=== PATIENT | female | born 1935 | race Caucasian/White ===

== ENCOUNTER 2023-03-14 14:32 | Inpatient (IN) | payer MEDICARE, OTHER ==
[~2023-03-14] VITALS: Ht 167.6 cm; Wt 50.8 kg
--- NOTE | 2023-03-14 15:05 | NUR ---
BUS ATTENDANT GEMINI [phone]
--- NOTE | 2023-03-14 15:24 | NUR ---
MOVE SHEET SUBMITTED.
--- NOTE | 2023-03-14 15:25 | NUR ---
INSERTED ANGO CATHETER G 18 ON LA AC BLOOD DROW AND SENT TO LAB
--- NOTE | 2023-03-14 15:30 | NUR ---
UA SENT TO LAB
[2023-03-14 16:00] LABS: BASOPHILS % (AUTO) 0.8 % (0.0-2.0); EOSINOPHILS % (AUTO) 2.4 % (0.0-6.0); HEMATOCRIT 36 % (33-45); HEMOGLOBIN 11.8 g/dL (11.5-14.8); LYMPHOCYTES # (AUTO) 1.1 K/uL (0.8-4.8); LYMPHOCYTES % (AUTO) 23.4 % (20.0-44.0); MEAN CORPUSCULAR HGB CONC 33 g/dl (31.0-36.0); MEAN CORPUSCULAR VOLUME 92 fL (82-100); MONOCYTES # (AUTO) 0.5 K/uL (0.1-1.30); MONOCYTES % (AUTO) 9.6 % (2.0-12.0); NEUTROPHILS # (AUTO) 3.1 K/uL (1.8-8.9); NEUTROPHILS % (AUTO) 63.8 % (43.0-81.0); PLATELET COUNT (AUTO) 261 K/uL (150-450); RED BLOOD CELL COUNT(AUTO) 3.94 MIL/uL (4.0-5.2); WHITE BLOOD COUNT (AUTO) 4.8 K/uL (4.3-11.0)
[2023-03-14 16:01] LABS: BILIRUBIN,URINE NEGATIVE (NEGATIVE); COLOR,URINE YELLOW (YELLOW); LEUKOCYTE ESTERASE ,URINE NEGATIVE (NEGATIVE); NITRITE, URINE NEGATIVE (NEGATIVE); PH,URINE 7.5 (5.0-8.0); PROTEIN,URINE NEGATIVE (NEGATIVE); UGLUCOSE 3+ mg/dL (NEGATIVE); UROBILINOGEN,URINE 0.2 EU/dL (0.2)
[2023-03-14 16:30] LABS: BACTERIA,URINE None seen /HPF (None Seen); RBC,URINE 0-2 /HPF (0-2); SQUAMOUS EPITHELIAL CELL,UR 0-2 /HPF (None Seen); WBC,URINE NONE SEEN /HPF (0-3)
[2023-03-14 16:31] LABS: CALCIUM, SERUM 9.1 mg/dL (8.5-10.1); CARBON DIOXIDE 28 mmol/L (21-32); CHLORIDE 101 mmol/L (98-107); CREATININE 0.8 mg/dL (0.6-1.3); GLUCOSE 110 mg/dL (74-106); POTASSIUM 3.5 mmol/L (3.5-5.1); SODIUM SERUM 140 mmol/L (136-145); UREA NITROGEN, BLOOD 27 mg/dL (7-18)
[2023-03-14 16:38] LABS: ALANINE AMINOTRANSFERASE 41 U/L (12-78); ALKALINE PHOSPHATASE 70 U/L (46-116); ASPARTATE AMINOTRANSFERASE 26 U/L (15-37); BILIRUBIN,DIRECT 0.2 mg/dL (0.0-0.2); BILIRUBIN,TOTAL 0.8 mg/dL (0.2-1.0); TOTAL PROTEIN, SERUM 7.2 g/dL (6.4-8.2)
[2023-03-14 16:40] LABS: ALCOHOL, BLOOD < 3 mg/dL (0-0)
--- NOTE | 2023-03-14 16:40 | NUR ---
c xray done at bed side
--- NOTE | 2023-03-14 16:45 | NUR ---
to ct scan of head via shan khan vs
--- NOTE | 2023-03-14 18:04 | NUR ---
[facility] CALLED, TEACHER DRAMA PAGED.
--- NOTE | 2023-03-14 18:49 | NUR ---
COVID SWAB SENT TO LAB
[2023-03-14] MEDS ORDERED: DORZ10DR11 LEFTEYE (19:00)
[2023-03-14] MEDS ORDERED: APIX2.5T PO (19:00)
[2023-03-14] MEDS ORDERED: FURO20TA4 PO (19:00)
[2023-03-14] MEDS ORDERED: VORT20TA PO (19:00)
[2023-03-14] MEDS ORDERED: LATA2.5D15 LEFTEYE (19:00)
[2023-03-14] MEDS ORDERED: CHOL100043 PO (19:00)
[2023-03-14] MEDS ORDERED: DORZ10DR11 RIGHTEYE (19:00)
[2023-03-14] MEDS ORDERED: METF-440 PO (19:00)
[2023-03-14] MEDS ORDERED: VERQUVO PO (19:00)
[2023-03-14] MEDS ORDERED: KETO5DRO39 LEFTEYE (19:00)
[2023-03-14] MEDS ORDERED: PRED5DRO17 RIGHTEYE (19:00)
[2023-03-14] MEDS ORDERED: SACU1TAB PO (19:00)
[2023-03-14] MEDS ORDERED: ATOR10TA PO (19:00)
--- NOTE | 2023-03-14 19:11 | NUR ---
[facility] CALLED, DEBUBBLIZER PAGED.
--- NOTE | 2023-03-14 19:21 | NUR ---
HAND OFF TO WILLIAM SHERMAN
--- NOTE | 2023-03-14 20:13 | NUR ---
REPORT GIVEN TO SHAHID SHERMAN
[2023-03-14 20:30] VITALS: BP 119/76
--- NOTE | 2023-03-14 20:30 | NUR ---
PT TRANSPORTED TO [facility]
--- NOTE | 2023-03-14 20:31 | NUR ---
RADIO TIME BUYER ADMITTING NOTES PT ARRIVED TO UNIT @ 2029 VIA GURNEY ASSISTED BY ER STAFF. A/O X4, NORTHERN IRISH-SPEAKING, UNDERSTANDS SOME NEPALI, ABLE TO MAKE NEEDS KNOWN. VITAL SIGNS: 148/84 BP, 70 HR, 20 RR, 98 F, 97% O2. WEIGHT: 112.4 LB. PLACED ON MACHINE EGG WASHER READING V-PACING, 72 HR, PACEMAKER SPIKES. ON RA WITH NO S/S OF SOB OR DISTRESS. DENIES PAIN AT THIS TIME. IV ACCESS RAC #20G SL, PATENT, INTACT, FLUSHING WELL. BREATH SOUNDS WNL. CIRCULATION WNL. BOWEL SOUNDS ACTIVE. NATURAL RESOURCES SPECIALIST ANTHONY SALDAÑA AT BEDSIDE, MEDIA DIRECTOR UTILIZED, ASKED QUESTIONS TO PT AND PERFORMED ASSESSMENTS. ASKED HOSPITALIST FOR NEW ORDERS, JUST THAT PT WILL BE DNR/DNI PER PT REQUEST. NIHSS STROKE SCALE PERFORMED: 0. NURSING SWALLOW SCREEN: PASSED. WILL ADMINISTER PO MEDS PER PROTOCOL. SKIN ASSESSMENT PERFORMED, NON-BLANCHABLE REDNESS NOTED ON SACRUM, PLACED OPTIFOAM FOR OFFLOADING. BELONGINGS CHECKED AND DOCUMENTED. PT MADE COMFORTABLE. ORIENTED TO UNIT AND HOW TO USE CALL LIGHT. SAFETY MEASURES PUT IN PLACE: BED LOCKED AND IN LOW POSITION, SIDE RAILS UP X3, BED ALARM ON, SIDE RAILS UP X3, CALL LIGHT AND TRAY TABLE WITHIN REACH. WILL CONTINUE TO MONITOR AND ASSIST.
[2023-03-14] MEDS ORDERED: MAGNESIUM HYDROXIDE 30 ML UDC PO PRN (21:30)
[2023-03-14] MEDS ORDERED: Z GUARD REMEDY 4 OZ OINT TP PRN (21:30)
[2023-03-14] MEDS ORDERED: ACETAMINOPHEN 325 MG TABLET PO PRN (21:30)
[2023-03-14] MEDS ORDERED: ASPIRIN 81 MG TAB.CHEW PO SCH (21:30)
[2023-03-14] MEDS ORDERED: ONDANSETRON HCL/PF 4 MG/2 ML VIAL IVP PRN (21:30)
[2023-03-14] MEDS: ATORVASTATIN 40 MG TABLET PO SCH (23:00)
[2023-03-15] VITALS: BP 118/69
[2023-03-15 04:00] VITALS: BP 112/68
[2023-03-15 07:10] LABS: BASOPHILS # (AUTO) 0.1 K/uL (0.0-0.2); BASOPHILS % (AUTO) 1.5 % (0.0-2.0); EOSINOPHILS % (AUTO) 3.5 % (0.0-6.0); HEMATOCRIT 35 % (33-45); HEMOGLOBIN 11.6 g/dL (11.5-14.8); LYMPHOCYTES # (AUTO) 0.9 K/uL (0.8-4.8); LYMPHOCYTES % (AUTO) 23.9 % (20.0-44.0); MEAN CORPUSCULAR HGB CONC 33 g/dl (31.0-36.0); MEAN CORPUSCULAR VOLUME 91 fL (82-100); MONOCYTES # (AUTO) 0.5 K/uL (0.1-1.30); MONOCYTES % (AUTO) 13.1 % (2.0-12.0); NEUTROPHILS # (AUTO) 2.2 K/uL (1.8-8.9); PLATELET COUNT (AUTO) 241 K/uL (150-450); RED BLOOD CELL COUNT(AUTO) 3.83 MIL/uL (4.0-5.2); WHITE BLOOD COUNT (AUTO) 3.9 K/uL (4.3-11.0)
--- NOTE | 2023-03-15 07:30 | NUR ---
RN INFORMATICS NOTES PT IN BED, AWAKE, ALERT AND VERBALLY RESPONSIVE, NO COMPLAINT OF PAIN OR ANY DISCOMFORT AT THIS TIME, CALL LIGHT WITHIN REACH, KEPT COMFORTABLE IN BED.
--- NOTE | 2023-03-15 07:30 | NUR ---
RADIO TALK SHOW HOST CLOSING NOTES PT AWAKE IN BED. A/O X4, ISRAELI-SPEAKING, UNDERSTANDS SOME TAJIK, ABLE TO MAKE NEEDS KNOWN. ON NASCAR DRIVER READING V-PACING, 70 HR, WITH PACEMAKER SPIKES. STABLE ON RA WITH NO S/S OF SOB OR DISTRESS. DENIES PAIN AT THIS TIME. IV ACCESS RAC #20G SL, PATENT, INTACT, FLUSHING WELL. ALL CARE PROVIDED AND MEDS TOLERATED WELL. SAFETY MEASURES MAINTAINED: BED LOCKED AND IN LOW POSITION, SIDE RAILS UP X3, BED ALARM ON, CALL LIGHT AND TRAY TABLE WITHIN REACH. WILL ENDORSE CHRISTIAN TO DAY SHIFT NURSE.
[2023-03-15 07:44] LABS: CALCIUM, SERUM 8.9 mg/dL (8.5-10.1); CARBON DIOXIDE 27 mmol/L (21-32); CHLORIDE 105 mmol/L (98-107); CREATININE 0.7 mg/dL (0.6-1.3); GLUCOSE 93 mg/dL (74-106); MAGNESIUM 2.2 mg/dL (1.8-2.4); PHOSPHORUS 3.6 mg/dL (2.5-4.9); POTASSIUM 3.8 mmol/L (3.5-5.1); SODIUM SERUM 140 mmol/L (136-145); UREA NITROGEN, BLOOD 23 mg/dL (7-18)
[2023-03-15 07:52] LABS: CHOLESTEROL 157 mg/dL (<200); HDL CHOLESTEROL 92 mg/dL (40-60); LDL 59 mg/dL (0-99); THYROID STIMULATING HORMONE 1.813 uIU/mL (0.358-3.74); TRIGLYCERIDES 79 mg/dL (30-150)
--- NOTE | 2023-03-15 09:07 | NUR ---
WOUND CARE CONSULT: PT PRESENTS WITH SACRAL INTACT DEEP TISSUE INJURY WITH SCARRING, PRESENT ON ADMISSION. PT IS AMBULATORY TO BATHROOM WITH ASSISTANCE. DISCUSSED SKIN PROTECTION WITH NURSING STAFF. IN AGREEMENT WITH PLAN OF CARE. Addendum: 03/15/23 at 0908 by VITOR KINSEY WNDNU Amended: Links added.
[2023-03-15] MEDS: CHOLECALCIFEROL 1,000 UNIT TABLET (VIT D3) PO SCH (09:13)
[2023-03-15] MEDS: APIXABAN 2.5 MG TABLET PO SCH ×2 (09:14→20:52)
[2023-03-15] MEDS: FUROSEMIDE 20 MG TABLET PO SCH (09:14)
[2023-03-15] MEDS: PANTOPRAZOLE 40 MG TABLET.DR PO SCH (09:14)
[2023-03-15] MEDS: TIMOLOL MAL/DORZOLAM HCL OPHTH 10 ML BOTTLE LEFTEYE SCH ×2 (09:19→20:51)
[2023-03-15] MEDS: TIMOLOL MAL/DORZOLAM HCL OPHTH 10 ML BOTTLE RIGHTEYE SCH (09:19)
[2023-03-15] MEDS: prednisoLONE ACETATE 1% SUSP 5 ML BOTTLE RIGHTEYE SCH ×3 (09:19→16:41)
[2023-03-15] MEDS: KETOROLAC EYE 0.5% 3 ML BOTTLE LEFTEYE SCH ×3 (09:20→16:41)
--- NOTE | 2023-03-15 09:38 | NUR ---
GRAINER MACHINE NOTES PT SEEN AND EXAMINED BY DR. VALERIO, UNABLE TO DO MRI DUE TO PACEMAKER, AWARE, PLAN OF CARE DISCUSSED WITH PT, VERBALIZED UNDERSTANDING.
[2023-03-15 10:20] VITALS: BP 138/77
[2023-03-15 11:22] VITALS: BP 103/64
[2023-03-15] MEDS: PROSOURCE / PROSTAT (PYXIS) 30 ML UDC GT SCH ×2 (12:27→16:40)
[2023-03-15 15:58] VITALS: BP 135/72
[2023-03-15] MEDS ORDERED: IOHEXOL-350 100 ML VIAL IV ONE (15:58)
[2023-03-15] MEDS ORDERED: IV NS 0.9% 250 ML IV ONE (16:00)
[2023-03-15] MEDS: SACUBITRIL/VALSARTAN 1 EACH TABLET PO SCH (16:40)
[2023-03-15] MEDS: ENSURE ENLIVE 237 ML LIQUID (VANILLA) PO SCH (16:46)
--- NOTE | 2023-03-15 18:43 | NUR ---
DIRECTOR PHYSICAL NOTES PT IN BED, ASLEEP, EASY TO AROUSE, ALERT AND ORIENTED, BARBADIAN SPEAKING BUT ABLE TO SPEAK AND UNDERSTAND SIMPLE BASIC IRISH, COMPLETED CTA BRAIN, SEEN BY DR. YE, PM CARE PROVIDED, PT ABLE TO AMBULATE TO THE BATHROOM OR BEDSIDE COMMODE WITH MINIMAL ASSISTANCE, ALL NEEDS ATTENDED.
--- NOTE | 2023-03-15 19:30 | NUR ---
CORPORATE PLANNER OPENING NOTES RECEIVED PATIENT AWAKE IN BED. PATIENT IS A/O TIMES 4 GUAMANIAN SPEAKER. NO PAIN NOTED. NO SOB NOTED. NO DISTRESS NOTED. PATIENT IS CALM AND COMFORTABLE ON TELE MONITOR READING V-PACING IN 70'S. IV ACCESS ON THE RAC G # 20 INTACT AND SL. PATIENT IS USING HER CANE AND USING BED SIDE COMMODE. NEURO CHECKS DONE. PATIENT ABLE TO SWALLOW WITHOUT ANY DIFFICULTY. ABLE TO MOVE TONGUE. NO DRIFT NOTED ON ALL 4 EXTREMITIES. ABLE TO STAND WITHOUT ANY PROBLEM. NO FACIAL DROOPING NOTED. PATIENT ALERT AND ORIENTED AND ABLE TO FOLLOW COMMANDS WHEN TANA GUILLORY CALLED AND SPOKE TO HER. TRAINING DEVELOPMENT MANAGER PRESENT . SHE CALLED TANA GUILLORY AROUND 193 AND SHE STATED HER CONCERNS: THE DAUGHTER GAVE DR GUERRERO BYRD WHO IS THE PATIENT'S WATER ENGINEER AND PRIMARY CARE PHYSICIAN. ALSO DR. W[place] WHO WORKS AT [facility] AND IS IN [place] ALSO AND PLACED PACEMAKER FOR THE PATIENT. DAUGHTER IS ASKING IF PATIENT NEEDED TO BE TRANSFER TO [place] SINCE ALL HER MEDICAL RECORDS ARE THERE ? ALSO ASKING IF EYE SCAN IS NEEDED SINCE PATIENT HAD COMPLICATIONS WITH HER EYES. TANA GUILLORY REQUESTED FOR ANY ADDING OR CHANGING MEDICATIONS REPORT TO HER AND PATIENT WATER ENGINEER PRIOR TO ANY CHANGES. ALL THE DAUGHTER CONCERNS NOTED AND ENDORSED TO CHARGE NURSE. WILL FOLLOW UP IN THE MORNING AND WILL GIVE THE INFOR TO MORNING SHIFT NURSE. ALL SAFETY MEASURES IN PLACE. BED LOCKED IN THE LOWEST POSITION. CALL LIGHT AND TABLE IN EASY REACH. SIDE RAILS UP TIMES 2. BED ALARM ON. WILL CONTINUE TO MONITOR CLOSELY.
[2023-03-15 20:00] VITALS: BP 127/75
[2023-03-15] MEDS: ATORVASTATIN 40 MG TABLET PO SCH (21:22)
[2023-03-15] MEDS: LATANOPROST EYE DROP 0.005% 2.5 ML BOTTLE LEFTEYE SCH (21:26)
[2023-03-16] VITALS: BP 133/70
[2023-03-16 05:04] VITALS: BP_SYST 126; BP_SYST 136; BP_SYST 137; BP_DIAS 77; BP_DIAS 78
--- NOTE | 2023-03-16 06:53 | NUR ---
THERMAL ENGINEER CLOSING NOTES PATIENT AWAKE IN BED. PATIENT IS A/O TIMES 4 TURKMEN SPEAKER. NO PAIN NOTED. NO SOB NOTED. NO DISTRESS NOTED. PATIENT IS CALM AND COMFORTABLE ON TELE MONITOR READING V-PACING IN 75'S. IV ACCESS ON THE LAC G # 20 INTACT AND SL. PATIENT IS USING HER CANE AND USING BED SIDE COMMODE. NEURO CHECKS DONE. PATIENT ABLE TO SWALLOW WITHOUT ANY DIFFICULTY. ABLE TO MOVE TONGUE. NO DRIFT NOTED ON ALL 4 EXTREMITIES. ABLE TO STAND WITHOUT ANY PROBLEM. NO FACIAL DROOPING NOTED. PATIENT ALERT AND ORIENTED AND ABLE TO FOLLOW COMMANDS. ALL DUE MEDS GIVEN ORDERED. ALL SAFETY MEASURES IN PLACE. BED LOCKED IN THE LOWEST POSITION. CALL LIGHT AND TABLE IN EASY REACH. SIDE RAILS UP TIMES 2. BED ALARM ON. WILL ENDORSE FOR CHRISTIAN.
[2023-03-16 07:14] LABS: CALCIUM, SERUM 8.6 mg/dL (8.5-10.1); CREATININE 0.8 mg/dL (0.6-1.3); POTASSIUM 3.8 mmol/L (3.5-5.1)
--- NOTE | 2023-03-16 07:15 | NUR ---
WIND TURBINE PERFORMANCE ENGINEER OPENING NOTES RECEIVED PATIENT AWAKE IN BED. PATIENT IS A/O TIMES 4 SOMALI SPEAKER. NO C/O PAIN AND DISCOMFORT NOTED. NO SOB DISTRESS NOTED. , ON TELE MONITOR READING V-PACING IN 70'S. IV ACCESS ON THE RAC G # 20 INTACT AND SL. . ALL SAFETY MEASURES IN PLACE. BED LOCKED IN THE LOWEST POSITION. CALL LIGHT AND TABLE IN EASY REACH. SIDE RAILS UP TIMES 2. BED ALARM ON. WILL CONTINUE TO MONITOR CLOSELY.
[2023-03-16 07:24] LABS: BASOPHILS # (AUTO) 0.1 K/uL (0.0-0.2); BASOPHILS % (AUTO) 1.5 % (0.0-2.0); HEMATOCRIT 34 % (33-45); HEMOGLOBIN 11.5 g/dL (11.5-14.8); LYMPHOCYTES # (AUTO) 0.8 K/uL (0.8-4.8); LYMPHOCYTES % (AUTO) 22.4 % (20.0-44.0); MEAN CORPUSCULAR HGB CONC 33 g/dl (31.0-36.0); MEAN CORPUSCULAR VOLUME 92 fL (82-100); MONOCYTES # (AUTO) 0.5 K/uL (0.1-1.30); MONOCYTES % (AUTO) 14.6 % (2.0-12.0); NEUTROPHILS # (AUTO) 2.1 K/uL (1.8-8.9); NEUTROPHILS % (AUTO) 57.5 % (43.0-81.0); PLATELET COUNT (AUTO) 228 K/uL (150-450); RED BLOOD CELL COUNT(AUTO) 3.76 MIL/uL (4.0-5.2); WHITE BLOOD COUNT (AUTO) 3.6 K/uL (4.3-11.0)
[2023-03-16] MEDS: PANTOPRAZOLE 40 MG TABLET.DR PO SCH (08:02)
[2023-03-16] MEDS: PROSOURCE / PROSTAT (PYXIS) 30 ML UDC GT SCH ×3 (08:03→17:37)
[2023-03-16] MEDS: ENSURE ENLIVE 237 ML LIQUID (VANILLA) PO SCH ×2 (08:03→17:37)
[2023-03-16 08:38] VITALS: BP 147/76
[2023-03-16] MEDS: FUROSEMIDE 20 MG TABLET PO SCH (08:53)
[2023-03-16] MEDS: CHOLECALCIFEROL 1,000 UNIT TABLET (VIT D3) PO SCH (08:53)
[2023-03-16] MEDS: APIXABAN 2.5 MG TABLET PO SCH ×2 (08:54→21:36)
[2023-03-16] MEDS: SACUBITRIL/VALSARTAN 1 EACH TABLET PO SCH ×2 (09:21→17:40)
[2023-03-16] MEDS: KETOROLAC EYE 0.5% 3 ML BOTTLE LEFTEYE SCH ×3 (09:22→17:37)
[2023-03-16] MEDS: prednisoLONE ACETATE 1% SUSP 5 ML BOTTLE RIGHTEYE SCH ×3 (09:22→17:37)
[2023-03-16] MEDS: TIMOLOL MAL/DORZOLAM HCL OPHTH 10 ML BOTTLE LEFTEYE SCH ×2 (09:22→21:42)
[2023-03-16] MEDS: TIMOLOL MAL/DORZOLAM HCL OPHTH 10 ML BOTTLE RIGHTEYE SCH (09:23)
[2023-03-16 16:05] VITALS: BP 126/69
--- NOTE | 2023-03-16 19:23 | NUR ---
MS RN CLOSING NOTES PATIENT AWAKE IN BED. PATIENT IS A/O TIMES 4 FINNISH SPEAKER. NO C/O PAIN AND DISCOMFORT NOTED. NO SOB DISTRESS NOTED. , ON TELE MONITOR READING V-PACING IN 70'S. IV ACCESS ON THE RAC G # 20 INTACT AND SL. .ALL DUE MEDS ORDERED , GIVEN DISCHARGE FROM TELE TO MS. AND IN A STABELE CONDITION , ALL SAFETY MEASURES IN PLACE. BED LOCKED IN THE LOWEST POSITION. CALL LIGHT AND TABLE IN EASY REACH. SIDE RAILS UP TIMES 2. BED ALARM ON. ENDORSED TO LOCKET MAKER NURSE
--- NOTE | 2023-03-16 19:33 | NUR ---
PRINCIPAL HARDWARE ARCHITECT OPENING NOTES RECEIVED PATIENT AWAKE IN BED AOX4 MOZAMBICAN SPEAKING,ON RM AIR MICHA WELL SAT 97%,NO SOB/DISTRESS NOTED,IV ACCESS ON THE RAC G # 20 INTACT AND SL. . ALL SAFETY MEASURES IN PLACE. BED LOCKED IN THE LOWEST POSITION. CALL LIGHT AND TABLE IN EASY REACH. SIDE RAILS UP TIMES 2. BED ALARM ON. WILL CONTINUE TO MONITOR.
[2023-03-16] MEDS: ATORVASTATIN 40 MG TABLET PO SCH (21:35)
[2023-03-16] MEDS: LATANOPROST EYE DROP 0.005% 2.5 ML BOTTLE LEFTEYE SCH (21:42)
--- NOTE | 2023-03-17 06:26 | NUR ---
BIOLOGICAL INSPECTOR CLOSING NOTE; PATIENT AWAKE IN BED AOX4 SPANISH SPEAKING WITH A LITTLE ARMENIAN,ON RM AIR MICHA WELL SAT 98%,NO SOB/DISTRESS NOTED,NO COMPLAIN OF PAIN/DISCOMFORT DURING SHIFT,DUE MEDS GIVEN ORDER,ALL NEEDS ATTENDEDIV ACCESS ON THE RAC G # 20 INTACT AND SL. . ALL SAFETY MEASURES IN PLACE. BED LOCKED IN THE LOWEST POSITION. CALL LIGHT AND TABLE IN EASY REACH. SIDE RAILS UP TIMES 2. BED ALARM ON. WILL CONTINUE TO MONITOR.
[2023-03-17 07:00] VITALS: BP 146/77
--- NOTE | 2023-03-17 07:25 | NUR ---
MS RN OPENING NOTES RECEIVED PATIENT AWAKE IN BED. PATIENT IS A/O TIMES 4 NIGERIEN SPEAKER. NO C/O PAIN AND DISCOMFORT NOTED. NO SOB DISTRESS NOTED. . IV ACCESS ON THE RAC G # 20 INTACT AND SL. . ALL SAFETY MEASURES IN PLACE. BED LOCKED IN THE LOWEST POSITION. CALL LIGHT AND TABLE IN EASY REACH. SIDE RAILS UP TIMES 2. BED ALARM ON. WILL CONTINUE TO MONITOR CLOSELY.
[2023-03-17] MEDS: PROSOURCE / PROSTAT (PYXIS) 30 ML UDC GT SCH (08:36)
[2023-03-17] MEDS: ENSURE ENLIVE 237 ML LIQUID (VANILLA) PO SCH (08:36)
[2023-03-17] MEDS: PANTOPRAZOLE 40 MG TABLET.DR PO SCH (08:36)
[2023-03-17] MEDS: FUROSEMIDE 20 MG TABLET PO SCH (08:36)
[2023-03-17] MEDS: SACUBITRIL/VALSARTAN 1 EACH TABLET PO SCH (08:36)
[2023-03-17] MEDS: CHOLECALCIFEROL 1,000 UNIT TABLET (VIT D3) PO SCH (08:37)
[2023-03-17] MEDS: APIXABAN 2.5 MG TABLET PO SCH (09:09)
[2023-03-17] MEDS: prednisoLONE ACETATE 1% SUSP 5 ML BOTTLE RIGHTEYE SCH (09:46)
[2023-03-17] MEDS: TIMOLOL MAL/DORZOLAM HCL OPHTH 10 ML BOTTLE LEFTEYE SCH (09:46)
[2023-03-17] MEDS: TIMOLOL MAL/DORZOLAM HCL OPHTH 10 ML BOTTLE RIGHTEYE SCH (09:47)
[2023-03-17] MEDS: KETOROLAC EYE 0.5% 3 ML BOTTLE LEFTEYE SCH (09:47)
[2023-03-17] MEDS ORDERED: CLOPIDOGREL BISULFATE 75 MG TABLET PO SCH (10:00)
--- NOTE | 2023-03-17 11:08 | NUR ---
WOODWORKING MACHINE FEEDER NOTES PATIENT IS WITH STANDING ORDER FOR DISCHARGE TODAY [facility] , ALL PAPERS WERE PREPARED, ALL DUE MEDS GIVEN ORDERED , DISCHARGE INSTRUCTIONS PROVIDED REGARDING MEDICATIONS , FOLLOW UP WITH PCP AND SAFETY PRECUATIONS , IV ACCESS AND ID BADGE REMOVED . REPORT WAS GIVEN TO ALEX LEES AND TO EMT , PATIENT LEFT IN STABLE CONDITION .
== END 2023-03-17 11:10 | DRG 57 ==
LOC: ER 14:35 → MED 20:05 → TELE 22:15 → MED 03-16 09:34
PROVIDERS: ADMIT Nurse Practitioner Family; ATTEND Nurse Practitioner Acute Care
DX: I69.398 Other sequelae of cerebral infarction (principal); E44.0 Moderate protein-calorie malnutrition; Z68.1 Body mass index [BMI] 19.9 or less, adult; R51.9 Headache, unspecified; I50.9 Heart failure, unspecified; I11.0 Hypertensive heart disease with heart failure; E11.65 Type 2 diabetes mellitus with hyperglycemia; Z66 Do not resuscitate; Z20.822 Contact with and (suspected) exposure to COVID-19; Z95.0 Presence of cardiac pacemaker; Z96.651 Presence of right artificial knee joint; Z79.01 Long term (current) use of anticoagulants; Z79.84 Long term (current) use of oral hypoglycemic drugs; Z79.899 Other long term (current) drug therapy; R79.89 Other specified abnormal findings of blood chemistry; I25.10 Atherosclerotic heart disease of native coronary artery without angina pectoris; I48.91 Unspecified atrial fibrillation; G93.89 Other specified disorders of brain; R29.700 NIHSS score 0
CPT/HCPCS: 36415; 70450-TC; 70496-TC; 71045-TC; 80048-TC; 80061-TC; 80076-TC; 81001; 82962-TC; 83735-TC; 84100-TC; 84443-TC; 84484-TC; 85025-TC; 85730-TC; 87081-TC; 92526; 92611-TC; 93307-TC; 97112-TC; 97116-TC; 97530-TC; C9803; G0378; G0480; J7050; Q9967